=== PATIENT | male | born 1950 | race Caucasian/White ===

== ENCOUNTER 2017-06-13 06:24 | Day surgery (SDC) | payer MEDICARE, OTHER ==
[2017-06-11 12:08] LABS: ABSOLUTE BASOPHILS # (AUTO) 0.1 10^3/uL (0.0-0.2); ABSOLUTE EOSINOPHILS # (AUTO) 0.2 10^3/uL (0.0-0.6); ABSOLUTE LYMPHOCYTES (AUTO) 2.3 10^3/uL (0.5-4.7); ABSOLUTE MONOCYTES (AUTO) 0.5 10^3/uL (0.1-1.4); ABSOLUTE NEUT (AUTO) 4.7 10^3/uL (1.7-8.2); BASOPHILS % (AUTO) 0.7 % (0-2); EOSINOPHILS % (AUTO) 2.9 % (0-6); LYMPHOCYTES % (AUTO) 29.4 % (13-45); MEAN CORPUSCULAR HEMOGLOBIN 31.1 pg (27.0-33.4); MEAN CORPUSCULAR HGB CONC 34.1 g/dL (32.0-36.0); MEAN CORPUSCULAR VOLUME 91 fl (80-97); MONOCYTES % (AUTO) 6.9 % (3-13); PLATELET COUNT 172 10^3/uL (150-450); RED BLOOD COUNT 4.83 10^6/uL (4.35-5.55); RED CELL DISTRIBUTION WIDTH 13.3 % (11.5-14.0); SEGMENTED NEUTROPHILS % (AUTO) 60.1 % (42-78); TOTAL CELLS COUNTED % (AUTO) 100 %; WHITE BLOOD COUNT 7.7 10^3/uL (4.0-10.5)
[2017-06-11 12:59] LABS: APPEARANCE,URINE CLEAR; BILIRUBIN,URINE NEGATIVE (NEGATIVE); COLOR,URINE STRAW; GLUCOSE, URINE NEGATIVE (NEGATIVE); KETONES,URINE NEGATIVE (NEGATIVE); LEUKOCYTE ESTERASE,URINE NEGATIVE (NEGATIVE); NITRITE,URINE NEGATIVE (NEGATIVE); PROTEIN,URINE NEGATIVE (NEGATIVE); URINE SPECIFIC GRAVITY 1.009; UROBILINOGEN,URINE NEGATIVE mg/dL (<2.0)
[~2017-06-13 06:24] MED LIST: CEFAZOLIN 1 GM/D5W RTU 1 GM/50 ML RTUPB IV PRN; RINGERS SOLUTION,LACTATED 1,000 ML IV PRN
[2017-06-13] MEDS ORDERED: FENTANYL CITRATE INJ/PF 100 MCG/2 ML AMPUL ONE (07:10)
[2017-06-13] MEDS ORDERED: KETAMINE HCL INJ 500 MG/10 ML VIAL ONE (07:10)
[2017-06-13] MEDS ORDERED: ONDANSETRON HCL INJ/PF 4 MG/2 ML SDV ONE (07:10)
[2017-06-13] MEDS ORDERED: MIDAZOLAM 2 MG/2 ML INJ ONE (07:10)
[2017-06-13] MEDS ORDERED: PROPOFOL INJ 200 MG/20 ML VIAL IV ONE ×2 (07:11→09:34)
[2017-06-13] MEDS ORDERED: LIDOCAINE 2% INJ-PF (20 MG/ML) 10 ML AMPUL ONE (07:11)
[2017-06-13] MEDS: BUPIVACAINE HCL 0.5 % INJ/PF 30 ML SDV ONE ×2 (07:55→08:15)
[2017-06-13] MEDS: LIDOCAINE 2% INJ (20 MG/ML) 20 ML MDV ONE ×2 (07:55→08:15)
--- NOTE | 2017-06-13 13:36 | RADIOLOGY REPORT (SQ) ---
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 FLUOROSCOPY TIME: 4 seconds 3 images saved to PACS. TECHNIQUE: Intra-operative images acquired during surgical procedure to evaluate progress. NUMBER OF IMAGES: 3 LIMITATIONS: None. FINDINGS: Selected images from osteotomy of the head of the 2nd meta tarsal. IMPRESSION: IMAGE(S) OBTAINED DURING PROCEDURE. COMMENT: Quality ID [id number]: Final reports for procedures using fluoroscopy that document radiation exp osure indices, or exposure time and number of fluorographic images (if radiation exposure indices are not available) Please consult full operative report of the attending physician for description of the procedure. TECHNICAL DOCUMENTATION: JOB ID: [id number] [employer]- All Rights Reserved
--- NOTE | 2017-06-13 13:44 | SURGICARE OPERATIVE REPORT E ---
[facility] Operative Report NAME: ALTAGRACIA MONTERROSO AGE: 66Y DATE OF SURGERY: 06/13/2017 ROOM: PREOPERATIVE DIAGNOSES: 1. Long second metatarsal, right foot. 2. Long hammer, second toe, right foot. POSTOPERATIVE DIAGNOSES: 1. Long second metatarsal, right foot. 2. Long hammer, second toe, right foot. PROCEDURES PERFORMED: 1. Valencia shortening osteotomy, second metatarsal, right foot. 2. Phalangectomy, second toe, right foot. SURGEON: RANJIT GUILLORY D.P.M. ANESTHESIA: Local. INTRAOPERATIVE FINDINGS: Indicated very long and plantar flexed second metatarsal which has created tremendous pressure point on the plantar aspect of the second metatarsophalangeal joint which has been interfering with the patient's daily activities. The second toe was partially longer and had hammer at the level of the proximal phalangeal joint creating also a friction pain over the second toe and pain at the tip of the second toe. Intraoperative findings were confirmed clinically and radiographically. PROCEDURE: With the patient laying in a dorsal recumbent position, right foot and leg were prepped and draped in the usual standard sterile orthopedic manner after the local anesthesia was administered which was a total ankle block. After the anesthetic effect was accomplished the right leg was elevated for approximately 2 minutes of time and the right ankle pneumatic tourniquet was inflated up to 250 mmHg after the blood was exsanguinated from the right foot. The right leg was brought to the level of the table. A curvilinear incision was placed right over the second metatarsal. The initial incision was deepened superficially and deep subcutaneous tissues were dissected via blunt and sharp dissection. This dissection was carried until the capsular structures were brought into the surgical field. By this time all bleeders were ligated, all vital structures were identified and protected from surgical trauma. At this point a vertical capsulotomy was performed. Capsular and periosteal structures were dissected off bone and the head of the second metatarsal was introduced into the surgical field. At this point the osteotomy was performed which was performed from anteroposterior direction of the second metatarsal. The osteotomy was performed at the upper two thirds of the head of the second metatarsal and it was parallel to the weightbearing surface of the second metatarsal. After the osteotomy was completed the plantar fragment was displaced posteriorly and the shift was about 3 to 4 mm. The level of shifting was established from the measurements obtained from the x-rays. With the head in its new anatomical position the fragment was stabilized with K wire from dorsal to plantar direction and after that the osteotomy was fixated with 2 snap-off screws. The proximal screw was 11 mm in length and the distal screw was 13 mm in length. We used the [employer] system to accomplish this work. After the osteotomy was stabilized the protruding wedge of bone created after the shifting of the plantar segment posteriorly was resected. At this point the correction was extremely satisfactory. Next, the second toe was evaluated and appeared it continued to be much longer than the rest of the toes and also hammered, and the decision was made to perform the phalangectomy at this point. The phalangectomy was performed at the level of the proximal interphalangeal joint. A curvilinear incision was placed right over the second toe, the initial incision was deepened, the superficial and deep subcutaneous tissues were dissected via blunt and sharp dissection. The capsular structures of the proximal interphalangeal joint were brought into the surgical field. Precautions were taken not to traumatize the neurovascular bundle on the medial and lateral aspect of the second toe. A transverse incision was placed right over the joint. The capsular and periosteal structures were dissected off bone and the head of the proximal phalanx was brought into the surgical field. The very distal portion was resected and that bone was removed to allow not only the shortening of the second toe but also to bring it to a straight rectus position. Again, the correction was satisfactory. The right ankle pneumatic tourniquet was deflated. Circulation to the right foot returned to normal as the normal visual color and temperature became apparent. Next, the surgical sites were irrigated with copious amounts of sterile saline solution. The capsular structures over the second metatarsophalangeal joint and the proximal interphalangeal joint of the second toe were closed with 3-0 Vicryl. The subcutaneous tissues from deep to superficial were closed with 3-0 Vicryl. The skin edges were brought together and were coaptated by using 4-0 continuous interlocked stitch. Betadine compression dressing was applied around the right foot followed by an Richard bandage and a surgical shoe. This patient tolerated procedures well, left the operating room with stable vital signs and in good condition. The patient was taken to the recovery room alert, conscious, and oriented. There are no permanent disabilities anticipated at this time. The immediate postoperative recovery was also very uneventful. The patient was sent home with instructions for postoperative care at home. The patient was given instructions how to take his postop pain medicine and antibiotics. The patient was instructed to ambulate with crutches without bearing any weight on the right foot. A follow-up appointment was set in my office in 72 hours. The patient was allowed to resume normal dietary habits and to take all of his other medications upon arriving at home. DICTATING PHYSICIAN: RANJIT GUILLORY D.P.M. [id number] PHY#: [id number] ID: [id number] JOB#: [id number] ACCT: [id number] cc:RANJIT GUILLORY D.P.M. >
--- NOTE | 2017-06-13 13:47 | RADIOLOGY REPORT (SQ) ---
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 IMPRESSION: Please see combined report for performance of procedure and radiologic supervision and i nterpretation.
== END 2017-06-13 10:24 | disposition home or self-care (01) ==
LOC: SC 06:24
PROVIDERS: ATTEND Podiatrist Foot & Ankle Surgery
PROC: 0QBQ0ZZ Excision of Right Toe Phalanx, Open Approach (ICD-10-PCS; 2017-06-13)
PROC: 0QSN04Z Reposition Right Metatarsal with Internal Fixation Device, Open Approach (ICD-10-PCS; principal; 2017-06-13 07:30)
DX: M21.6X1 Other acquired deformities of right foot (principal); M20.42 Other hammer toe(s) (acquired), left foot; Z79.899 Other long term (current) drug therapy; Z79.82 Long term (current) use of aspirin; F17.210 Nicotine dependence, cigarettes, uncomplicated; K21.9 Gastro-esophageal reflux disease without esophagitis; I49.9 Cardiac arrhythmia, unspecified
CPT/HCPCS: 36415; 85025; 81001; 73620; 28308; 28285; C1713 ×3; J2250; J3490 ×2; J0690; J3010; J2405; J2704; 01480

== ENCOUNTER → 2018-04-01 | Outpatient (CLI) | payer MEDICARE, OTHER ==
--- NOTE | 2018-04-01 12:15 | RADIOLOGY REPORT (SQ) ---
EXAM DESCRIPTION: U/S RETROPERITON (RENAL/AORTA) COMPLETED DATE/TIME: 04/01/2018 11:54 am REASON FOR STUDY: N28.89 OTHER SPECIFIED DISORDERS OF KIDNEY AND URETER N28.89 OTHER SPECIFIED DISO RDERS OF KIDNEY AND URETER R94.31 ABNORMAL ELECTROCARDIOGRAM ECG EKG COMPARISON: None. TECHNIQUE: Dynamic and static grayscale images acquired of the kidneys and bladder and recorded on P ACS. Additional selected color Doppler and spectral images recorded. LIMITATIONS: None. FINDINGS: RIGHT KIDNEY: There is a 1.6 x 1.3 x 1.5 cm cyst. Normal size. Normal echogenicity. No so lid or suspicious masses. No hydronephrosis. No calcifications. LEFT KIDNEY: Normal size. Normal echogenicity. No solid or suspicious masses. No hydronephrosis. No calcifications. There are multiple cysts. The largest measures 5.1 x 5.2 x 4.4 cm in size. This cy st demonstrates septations and internal echoes. BLADDER: No masses. OTHER FINDINGS: No other significant finding. IMPRESSION: Complex left renal cysts. The largest measures 5.1 x 5.2 x [address] correl ation. Simple right renal cyst measured 1.6 x 1.3 x 1.5 cm. TECHNICAL DOCUMENTATION: JOB ID: [id number] [facility]- All Rights Reserved Reading location - IP/workstation name: [email or web address]
== END ==
LOC: RAD 10:58
PROVIDERS: ATTEND Family Medicine
DX: N28.1 Cyst of kidney, acquired (principal)
CPT/HCPCS: 76770

== ENCOUNTER → 2018-04-10 | Outpatient (CLI) | payer MEDICARE, OTHER ==
[2018-04-10 09:10] LABS: ABSOLUTE EOSINOPHILS # (AUTO) 0.4 10^3/uL (0.0-0.6); ABSOLUTE LYMPHOCYTES (AUTO) 2.4 10^3/uL (0.5-4.7); ABSOLUTE MONOCYTES (AUTO) 0.7 10^3/uL (0.1-1.4); ABSOLUTE NEUT (AUTO) 5.5 10^3/uL (1.7-8.2); BASOPHILS % (AUTO) 0.4 % (0-2); EOSINOPHILS % (AUTO) 4.5 % (0-6); HEMOGLOBIN 15.5 g/dL (13.5-17.0); LYMPHOCYTES % (AUTO) 26.7 % (13-45); MEAN CORPUSCULAR HEMOGLOBIN 31.9 pg (27.0-33.4); MEAN CORPUSCULAR HGB CONC 34.5 g/dL (32.0-36.0); MEAN CORPUSCULAR VOLUME 93 fl (80-97); MONOCYTES % (AUTO) 7.5 % (3-13); PLATELET COUNT 201 10^3/uL (150-450); RED BLOOD COUNT 4.86 10^6/uL (4.35-5.55); RED CELL DISTRIBUTION WIDTH 13.5 % (11.5-14.0); SEGMENTED NEUTROPHILS % (AUTO) 60.9 % (42-78); TOTAL CELLS COUNTED % (AUTO) 100 %
== END ==
LOC: OD 08:23
PROVIDERS: ATTEND Radiology Radiation Oncology
DX: C32.0 Malignant neoplasm of glottis (principal); R97.20 Elevated prostate specific antigen [PSA]
CPT/HCPCS: 36415; 84153; 85025

== ENCOUNTER → 2018-05-27 | Outpatient (CLI) | payer MEDICARE, OTHER ==
--- NOTE | 2018-05-27 08:51 | RADIOLOGY REPORT (SQ) ---
EXAM DESCRIPTION: CT ABDOMEN COMBO COMPLETED DATE/TIME: 05/27/2018 8:29 am REASON FOR STUDY: LT RENAL CYSTIC MASS N28.89 OTHER SPECIFIED DISORDERS OF KIDNEY AND URETER COMPARISON: Ultrasound 04/01/2018. TECHNIQUE: CT scan of the abdomen performed with and without intravenous contrast, and without oral contrast. Contrasted imaging performed using helical scanning technique with dynamic intravenous cont rast injection. Images reviewed with lung, soft tissue, and bone windows. Reconstructed coronal and s agittal MPR images reviewed. Delayed images for evaluation of the urinary system also acquired and ev aluated. All images stored on PACS. All CT scanners at this facility use dose modulation, iterative reconstruction, and/or weight based d osing when appropriate to reduce radiation dose to as low as reasonably achievable (ALARA). [facility]: Dose Right [facility]: CareDose [facility]: Dose Right [facility]: Teradose 4D [facility]: LemonCrate CONTRAST TYPE AND DOSE: contrast/concentration: Isovue 350.00 mg/ml; Total Contrast Delivered: 57.0 ml; Total Saline Delivered: 80.0 ml RENAL FUNCTION: Creatinine 1.5. RADIATION DOSE: CT Rad equipment meets quality standard of care and radiation dose reduction techniq ues were employed. CTDIvol: 11.4 - 25.4 mGy. DLP: 1761 mGy-cm.. LIMITATIONS: None. FINDINGS: NONCONTRASTED IMAGIN mm calcification without obstruction left kidney. At least 1 oth er smaller left lower pole calculus. No right calculi. POSTCONTRASTED IMAGING: LOWER CHEST: Scarring. Cardiomegaly. Coronary calcification. LIVER: Subcentimeter cyst in the lateral segment left lobe. Otherwise normal. SPLEEN: Normal size. No focal lesions. PANCREAS: No masses. No significant calcifications. No adjacent inflammation or peripancreatic fluid collections. Pancreatic duct not dilated. GALLBLADDER: Suspect mild adenomyomatosis. Otherwise normal. ADRENAL GLANDS: No significant masses or asymmetry. RIGHT KIDNEY AND URETER: Scattered small cysts. No solid mass or evidence of obstruction. LEFT KIDNEY AND URETER: Numerous cysts are present. Largest are in the upper pole measuring over 5 c m. This includes a 5.2 cm cyst in the posterior upper pole with mild internal increased density on n oncontrast imaging. Pre and post contrast Hounsfield units are in the high teens without any clear a bnormal enhancement or solid component detected. No evidence of obstruction. AORTA AND VESSELS: No aneurysm. No dissection. Renal arteries, SMA, celiac without stenosis. RETROPERITONEUM: No retroperitoneal adenopathy, hemorrhage or masses. BOWEL AND PERITONEAL CAVITY: No masses or inflammatory changes. No free fluid or peritoneal masses. APPENDIX: Not visualized. ABDOMINAL WALL: No masses. No hernias. BONES: No significant or acute findings. OTHER: No other significant finding. IMPRESSION: 1. Complicated cyst in the left renal upper pole. No solid or suspicious components. 2 . Nonobstructive left nephrolithiasis. 3. Suspect adenomyomatosis in the gallbladder. TECHNICAL DOCUMENTATION: JOB ID: [id number] Quality ID # [id number]: Final reports with documentation of one or more dose reduction techniques (e.g., Au tomated exposure control, adjustment of the mA and/or kV according to patient size, use of iterative reconstruction technique) 2010 [employer]- All Rights Reserved Reading location - IP/workstation name: [email or web address]
== END ==
LOC: RAD 07:55
PROVIDERS: ATTEND Urology
DX: N28.89 Other specified disorders of kidney and ureter (principal)
CPT/HCPCS: 74170; 82565

== ENCOUNTER → 2018-09-08 | Outpatient (CLI) | payer MEDICARE, OTHER ==
--- NOTE | 2018-09-09 08:45 | RADIOLOGY REPORT (SQ) ---
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 TECHNIQUE: Blood glucose level was verified. Above dose of FDG was injected intravenously. 2-D seg mented attenuation correction images were obtained from the base of the skull to the midthighs. Nonc ontrast CT images were obtained for attenuation correction and fusion with emission images. CT image s were performed without oral or intravenous contrast and are not sensitive for parenchymal lesions. A series of overlapping emission PET images were obtained. Images reviewed and manipulated at [facility] work station by the radiologist. Images stored on PACS. LIMITATIONS: None. FINDINGS: HEAD AND NECK: No areas of abnormal metabolic activity in the soft tissues of the head and neck. Specifically, no increased metabolic activity is seen over the larynx. CT no metabolically a ctive cervical lymph nodes are identified. Non metabolic less than 5 mm short axis lymph nodes in th e right and left neck are present. CHEST: No areas of abnormal metabolic activity in the chest. ABDOMEN AND PELVIS: No areas of abnormal metabolic activity in the abdomen or pelvis. Expected physi ologic activity is present in the genitourinary system and bowel. PROXIMAL LOWER EXTREMITIES: No areas of abnormal metabolic activity in the soft tissues of the lower extremities. BONES: No abnormal metabolic activity in the visualized skeleton. ADDITIONAL CT FINDINGS: Stable left upper pole 5.5 and 5.1 cm renal cysts. Stable left lower pole 4. 5 renal cyst. Unchanged 1 cm left upper pole intrarenal nonobstructive stone, 440 Hounsfield units i n density. 1 cm right midpole renal cortical cyst. Descending and sigmoid colon diverticuli without CT signs of acute diverticulitis. OTHER: Liver background activity 2.2 SUV. Blood pool background activity 1.8 SUV IMPRESSION: No hypermetabolic cervical adenopathy. No increased uptake over the larynx TECHNICAL DOCUMENTATION: JOB ID: [id number]- All Rights Reserved Reading location - IP/workstation name: [email or web address]
== END ==
LOC: RAD 17:56
PROVIDERS: ATTEND Otolaryngology
DX: C44.92 Squamous cell carcinoma of skin, unspecified (principal); Z85.21 Personal history of malignant neoplasm of larynx; N28.1 Cyst of kidney, acquired
CPT/HCPCS: 78815; A9552

== ENCOUNTER → 2020-02-15 | Outpatient (CLI) | payer MEDICARE, OTHER ==
--- NOTE | 2020-02-15 10:13 | RADIOLOGY REPORT (SQ) ---
EXAM DESCRIPTION: COOKIE SWALLOW IMAGES COMPLETED DATE/TIME: 02/15/2020 9:18 am REASON FOR STUDY: R13.10 DYSPHAGIA, UNSPECIFIED R13.10 DYSPHAGIA, UNSPECIFIED COMPARISON: None. TECHNIQUE: Videofluoroscopic swallowing examination was performed in conjunction with speech patholo gy. Videofluoroscopic imaging was obtained and reviewed and these are the findings: RADIATION DOSE: Fluoro time 2.3 minutes 1 images saved to PACS. LIMITATIONS: None FINDINGS: The patient was brought into the fluoro room and placed upright on a modified barium swall ow chair. The patient was then given multiple consistencies mixed with barium to swallow under live fluoroscopic video guidance. According to the Speech Pathologist there was no penetration or aspirat ion. Please refer to the speech pathology report for further details. IMPRESSION: NO EVIDENCE OF PENETRATION OR ASPIRATION. PLEASE SEE SPEECH PATHOLOGIST REPORT FOR OTHER FINDINGS AND RECOMMENDATIONS. COMMENT: None Quality ID 145: Final reports for procedures using fluoroscopy that document radiation exposure jose rea, or exposure time and number of fluorographic images (if radiation exposure indices are not avail able) TECHNICAL DOCUMENTATION: JOB ID: [id number] 2010 [employer]- All Rights Reserved Reading location - IP/workstation name: [email or web address]
--- NOTE | 2020-02-15 10:57 | ST Modified Barium Swallow ---
Recommendation - Recommendations Recommendations: Recommend short course of dysphagia therapy to establish exercises to prevent worsening of swallowing skills. May benefit from GI consult due to reduced UES opening. 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 History of frequent vocal polyp removal prior to radiation treatment (surgical, laser). Patient also has history of cervical spine surgery. - ICD-10 Tx Diagnosis Coding (1) Dysphagia ICD-10 Code(s): R13.10 - DYSPHAGIA, UNSPECIFIED ST Modified Barium Swallow - General Date: 02/15/20 Referring Physician: Dr. Green Date of Onset: 01/31/18 Reason for Referral: difficulty swallowing - History -: Medical - per patient report: patient states that he has had intermittent difficulty with swallowing since radiation treatment for laryngeal cancer in 2018. Patient reports having few episodes of difficulty swallowing, however, states that his episodes are very significant. Patient reports "stuff is going down the wrong way". Does not report any patterns with this. Medications: not reported by patient Allergies: no known allergies - Functional Status Prior Functional Status: INDEPENDENT: feeding Current Functional Limitations: feeding - Subjective Patient/caregiver goal(s): better swallow, r/o aspiration Cognitive-Linguistic Function: WNL Speech Intelligibility: WNL Current Nutritional Means: PO Current PO diet: Regular Current symptoms: Coughing Pain: Patient reports, 0/5 - Objective Assessment: Upright, Left Lateral - Food Trials Used Food trials used: Thin liquids, Pureed, Regular The patient: Was Able to Self Feed - Oral-Motor Skills Velo-pharyngeal function: Unremarkable Laryngeal Function: clear voicing - Assessment Oral prep: Normal Labial closure: Adequate Leakage: None Mastication: Adequate Lingual Movement: Normal Oral stage: Normal for this Procedure - Pharyngeal Stage Initiation of Pharyngeal Stage Reflex: Normal Decreased laryngeal elevation: No Reduced Velopharyngeal Closure: no Reduced pressure generation: Yes reduced tongue-based retraction: Yes Pre-swallow pooling in valleculae: None Pre-Swallow pooling in pyriforms: None Reduced Thyro-Hyoid approximation: No Reduced epiglottic excursion: Yes - intermittent Reduced pharyngeal peristalsis/contraction: No Multiple Swallows with: Cleared w/ Liquid Assist Post-swallow residulas vallecular: Significant - with regular solid Post-Swallow residuals in pyriforms: Mild - with puree and regular solid Reduced Cricopharyngeal opening: Yes - retrograde movement of bolus through UES seen - Fall Risk Assessment Medications/Conditions that increase fall risks include: Antidepressants, sedatives, anti-arrhythmic, diuretic, benzodiazipenes, neuroleptics. BP regulation problems, cardiac problems, balance or gait deficits, neurological problems. Is patient considered at risk for falls: no Fall Risk Actions Taken: No action needed - Treatment / Educational Needs: Treatment/Education Needs: Treatment consisted of patient education on the role of the Speech Pathologist. Patient's plan of care and golas were communicated as well as scheduling and attendance policies. Recommendations for initial home program were shared. Patient demonstrated understanding and verbalized agreement. - Impression/Summary Laryngeal Penetration: No Tracheal Aspiration: no Patient presents with: Pharyngeal stage dysph., Mild-Moderate Risk of Aspiration: Mild Evaluation and Findings: Patient demonstrate mild to moderately reduced base of tongue retraction and epiglottic inversion, which resulted in significant va lleculae residue of regular solids. Residuals also present with puree solids, but not as prominent. Patient also noted to have pyriform residue after the swallow, in part due to reduced opening of UES, and bolus unable to fully move through UES on a single swallow. - Recommendations Solid diet recommendations: Regular - educated patient that heavier/thicker f oods are at higher risk of remaining in the throat after the swallow Liquid Diet Modification: Thin Dysphagia therapy with PRECISION LENS GRINDER APPRENTICE: yes Recommended techniques: Fully Upright During Meal, Small Bites and Sips, Alternate Bites/Sips Information, Precautions and Recommendations: Patient (Written), Patient ( Verbal) Other recommendations: Due to patient's history of laryngeal cancer with radiation treatment, it is recommended that the patient have dysphagia treatment to address current pharyngeal phase deficits, as well as to prevent worsening of dysphagia symptoms. - Plan of Care Strategies to optimize patient understanding include:: ongoing assessment of educational needs, implementation of educational strategies, and re-education. - - -: Thank you for the opportunity to work with this patient and his/her family. Should you have any questions about this patient's plan or progress, I can be reached at [phone].
== END ==
LOC: RAD 08:04
PROVIDERS: ATTEND Otolaryngology
DX: R13.10 Dysphagia, unspecified (principal); Z85.21 Personal history of malignant neoplasm of larynx
CPT/HCPCS: 74230